=== PATIENT | female | born 2005 | race Caucasian/White ===

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

== ENCOUNTER 2024-06-14 17:57 | Emergency (ER) | payer MEDICAID, OTHER | END 2024-06-14 19:43 | disposition short-term general hospital (02) | LOC: MADERS 17:57 | DX: O36.8931 Maternal care for other specified fetal problems, third trimester, fetus 1 (principal); Z55.6 Problems related to health literacy; Z3A.34 34 weeks gestation of pregnancy ==